=== PATIENT | male | born 1935 | race Caucasian/White ===

== ENCOUNTER 2019-10-05 19:57 | Inpatient (IN) | payer BC, MEDICARE ==
[~2019-10-05] VITALS: Ht 190.5 cm; Wt 103.0 kg
[2019-10-05] MEDS ORDERED: PACERONE200 MG PO (20:26)
[2019-10-05] MEDS ORDERED: NORVASC10 MG PO (20:26)
[2019-10-05] MEDS ORDERED: LIPITOR10 MG PO (20:26)
[2019-10-05] MEDS ORDERED: VITAMIN D350 MC3 PO (20:27)
[2019-10-05] MEDS ORDERED: METOPROLOL SUCC25 MG PO (20:27)
[2019-10-05] MEDS ORDERED: ZOLOFT50 MG PO (20:27)
[2019-10-05] MEDS ORDERED: ELIQUIS2.5 MG PO (20:28)
[2019-10-05] MEDS ORDERED: OMEPRAZOLE20 MG PO (20:28)
--- NOTE | 2019-10-05 22:38 | EKG ---
[facility] [address] [place] [address] Signed Atrial fibrillation Low voltage QRS Nonspecific ST and T wave abnormality Prolonged QT Abnormal ECG No previous ECGs available Confirmed by DARREL LEONARD MD ([id number]) on 10/05/2019 10:38:09 PM Electronically Signed By: DARREL LEONARD MD 10/05/19 [id number] PATIENT NAME: PARIS HILL Electrocardiogram DATE OF : 39 PHYSICIAN: DARREL LEONARD MD REPORT #: [id number] REPORT IS CONFIDENTIAL AND NOT TO BE RELEASED WITHOUT AUTHORIZATION
[2019-10-07] MEDS ORDERED: ALEVE220 MG PO (13:43)
[2019-10-10] MEDS ORDERED: CEFPODOXIME PR200 MG PO (13:11)
[2019-10-10] MEDS ORDERED: SODIUM BICARBO650 MG PO (13:12)
== END 2019-10-10 15:35 | disposition home or self-care (01) | DRG 193 ==
LOC: ED 19:57 → CCU 10-06 00:26 → MS 10-07 12:00
PROVIDERS: ADMIT Internal Medicine
DX: J13 Pneumonia due to Streptococcus pneumoniae (principal); J96.01 Acute respiratory failure with hypoxia; N18.4 Chronic kidney disease, stage 4 (severe); E11.22 Type 2 diabetes mellitus with diabetic chronic kidney disease; I12.9 Hypertensive chronic kidney disease with stage 1 through stage 4 chronic kidney disease, or unspecified chronic kidney disease; K21.9 Gastro-esophageal reflux disease without esophagitis; E78.5 Hyperlipidemia, unspecified; F32.9 Major depressive disorder, single episode, unspecified; R41.81 Age-related cognitive decline; I48.0 Paroxysmal atrial fibrillation; I25.2 Old myocardial infarction; I25.10 Atherosclerotic heart disease of native coronary artery without angina pectoris; Z95.1 Presence of aortocoronary bypass graft; Z66 Do not resuscitate; Z86.718 Personal history of other venous thrombosis and embolism; Z79.01 Long term (current) use of anticoagulants; Z79.1 Long term (current) use of non-steroidal anti-inflammatories (NSAID); Z79.899 Other long term (current) drug therapy
CPT/HCPCS: 36415; 36600; 51702; 71045; 71046; 80048; 80053; 81001; 82803; 83036; 83605; 83735; 85025; 87070; 87077; 87088; 87181; 87186; 87205; 87502; 93005; 93010; 93306; 94640; 94660; 94667; 94668; 94761; 97110; 97116; 97162; 97165; 97530; 99285-25; J0456; J0696; J3475; J7030; J7060; J7121

== ENCOUNTER 2019-12-31 22:33 | Emergency (ER) | payer BC ==
[~2019-12-31] VITALS: Ht 190.5 cm; Wt 99.8 kg
--- OUTSIDE RECORDS SUMMARY | ~2019-12-31 | XMS | Encounter Summary ---
Demographics + + + | Address | [address] | | | [place] [address] | + + + | Home Phone | | + + + | Preferred Language | Unknown | + + + | Marital Status | | + + + | Lutheran Affiliation | Unknown | + + + | Race | Unknown | + + + | Ethnic Group | Unknown | + + + Author + + + | Author | [facility] | | | and [place] | + + + | Organization | [facility] | | | and [place] | + + + | Address | Unknown | + + + | Phone | Unavailable | + + + Support + + + + + | Name | Relationship | Address | Phone | + + + + + | Enma Blum | ECON | [address] | | | | | [address] | | | | | [address] | | + + + + + Care Team Providers + +------+ + | Care Event Security Officer Name | Role | Phone | + +------+ + | Yasmani Phelan PCP | | + +------+ + Encounter Details +--------+ + + + + | Date | Type | Department | Care Team | Description | +--------+ + + + + | 11/10/ | Abstract | [facility] | [place], | | | 2020 | | NEPHROLOGY [address] | Shannan R, TRIMMING ASSEMBLER [address] | | | | | [address] [place] [address] | [address], [place] | | | | | [place], [place] | [address] [place], [place] | | | | | [phone] | [address] | | | | | [phone] | | | +--------+ + + + + Social History + + + +--------+ + | Tobacco Use | Types | Packs/Day | Years | Date | | | | | Used | | + + + +--------+ + | Former Smoker | Cigarettes | | | Quit: 07/28/1981 | + + + +--------+ + + +---+---+---+ | Smokeless Tobacco: | | | | | Never Used | | | | + +---+---+---+ + + +---------+ + | Alcohol Use | Drinks/Week | oz/Week | Comments | + + +---------+ + | Yes | | | seldom | + + +---------+ + + + + | Sex Assigned at | Date Recorded | | | | + + + | Not on file | | + + + + + + + | Job Start Date | Occupation | Industry | + + + + | Not on file | Not on file | Not on file | + + + + + + + + | Travel History | Travel Start | Travel End | + + + + + + | No recent travel history available. | + + documented as of this encounter Plan of Treatment +--------+---------+ + + + | Date | Type | Specialty | Care Team | Description | +--------+---------+ + + + | 01/26/ | Office | Nephrology | [place], | | | 2020 | Visit | | [address] | | | | | | [address], [place] | | | | | | [address] [place] | | | | | | [address] | | | | | | | | +--------+---------+ + + + | 02/23/ | Office | Cardiology | Rasheed Dooley, | | | 2019 | Visit | | MD [address] | | | | | | [place], | | | | | | [place] [address] | | | | | | [phone] | | | | | | | | +--------+---------+ + + + documented as of this encounter Procedures + +--------+ + + + | Procedure Name | Priori | Date/Time | Associated Diagnosis | Comments | | | ty | | | | + +--------+ + + + | EXTERNAL LAB: JESUS | Routin | 10/20/2019 | | Results for this | | | e | | | procedure are in the | | | | | | results section. | + +--------+ + + + | EXTERNAL LAB: | Routin | 10/20/2019 | | Results for this | | GLUCOSE | e | | | procedure are in the | | | | | | results section. | + +--------+ + + + | EXTERNAL LAB: ALT | Routin | 10/20/2019 | | Results for this | | | e | | | procedure are in the | | | | | | results section. | + +--------+ + + + | EXTERNAL LAB: AST | Routin | 10/20/2019 | | Results for this | | | e | | | procedure are in the | | | | | | results section. | + +--------+ + + + | EXTERNAL LAB: | Routin | 10/20/2019 | | Results for this | | ALKALINE PHOSPHATASE | e | | | procedure are in the | | | | | | results section. | + +--------+ + + + | EXTERNAL LAB: | Routin | 10/20/2019 | | Results for this | | BILIRUBIN, TOTAL | e | | | procedure are in the | | | | | | results section. | + +--------+ + + + | EXTERNAL LAB: | Routin | 10/20/2019 | | Results for this | | ALBUMIN | e | | | procedure are in the | | | | | | results section. | + +--------+ + + + | EXTERNAL LAB: | Routin | 10/20/2019 | | Results for this | | PROTEIN, TOTAL | e | | | procedure are in the | | | | | | results section. | + +--------+ + + + | EXTERNAL LAB: | Routin | 10/20/2019 | | Results for this | | CALCIUM | e | | | procedure are in the | | | | | | results section. | + +--------+ + + + | EXTERNAL LAB: CARBON | Routin | 10/20/2019 | | Results for this | | DIOXIDE | e | | | procedure are in the | | | | | | results section. | + +--------+ + + + | EXTERNAL LAB: | Routin | 10/20/2019 | | Results for this | | CHLORIDE | e | | | procedure are in the | | | | | | results section. | + +--------+ + + + | EXTERNAL LAB: | Routin | 10/20/2019 | | Results for this | | POTASSIUM | e | | | procedure are in the | | | | | | results section. | + +--------+ + + + | EXTERNAL LAB: SODIUM | Routin | 10/20/2019 | | Results for this | | | e | | | procedure are in the | | | | | | results section. | + +--------+ + + + | EXTERNAL LAB: CBC | Routin | 10/20/2019 | | Results for this | | | e | | | procedure are in the | | | | | | results section. | + +--------+ + + + | EXTERNAL LAB: EGFR | Routin | 10/20/2019 | | Results for this | | | e | | | procedure are in the | | | | | | results section. | + +--------+ + + + | EXTERNAL LAB: | Routin | 10/20/2019 | | Results for this | | CREATININE | e | | | procedure are in the | | | | | | results section. | + +--------+ + + + | EXTERNAL LAB: BUN | Routin | 10/08/2019 | | Results for this | | | e | | | procedure are in the | | | | | | results section. | + +--------+ + + + | EXTERNAL LAB: | Routin | 10/08/2019 | | Results for this | | GLUCOSE | e | | | procedure are in the | | | | | | results section. | + +--------+ + + + | EXTERNAL LAB: | Routin | 10/08/2019 | | Results for this | | CALCIUM | e | | | procedure are in the | | | | | | results section. | + +--------+ + + + | EXTERNAL LAB: CARBON | Routin | 10/08/2019 | | Results for this | | DIOXIDE | e | | | procedure are in the | | | | | | results section. | + +--------+ + + + | EXTERNAL LAB: | Routin | 10/08/2019 | | Results for this | | CHLORIDE | e | | | procedure are in the | | | | | | results section. | + +--------+ + + + | EXTERNAL LAB: | Routin | 10/08/2019 | | Results for this | | POTASSIUM | e | | | procedure are in the | | | | | | results section. | + +--------+ + + + | EXTERNAL LAB: SODIUM | Routin | 10/08/2019 | | Results for this | | | e | | | procedure are in the | | | | | | results section. | + +--------+ + + + | EXTERNAL LAB: EGFR | Routin | 10/08/2019 | | Results for this | | | e | | | procedure are in the | | | | | | results section. | + +--------+ + + + | EXTERNAL LAB: | Routin | 10/08/2019 | | Results for this | | CREATININE | e | | | procedure are in the | | | | | | results section. | + +--------+ + + + | EXTERNAL LAB: BUN | Routin | 10/05/2019 | | Results for this | | | e | | | procedure are in the | | | | | | results section. | + +--------+ + + + | EXTERNAL LAB: | Routin | 10/05/2019 | | Results for this | | GLUCOSE | e | | | procedure are in the | | | | | | results section. | + +--------+ + + + | EXTERNAL LAB: ALT | Routin | 10/05/2019 | | Results for this | | | e | | | procedure are in the | | | | | | results section. | + +--------+ + + + | EXTERNAL LAB: AST | Routin | 10/05/2019 | | Results for this | | | e | | | procedure are in the | | | | | | results section. | + +--------+ + + + | EXTERNAL LAB: | Routin | 10/05/2019 | | Results for this | | ALKALINE PHOSPHATASE | e | | | procedure are in the | | | | | | results section. | + +--------+ + + + | EXTERNAL LAB: | Routin | 10/05/2019 | | Results for this | | BILIRUBIN, TOTAL | e | | | procedure are in the | | | | | | results section. | + +--------+ + + + | EXTERNAL LAB: | Routin | 10/05/2019 | | Results for this | | ALBUMIN | e | | | procedure are in the | | | | | | results section. | + +--------+ + + + | EXTERNAL LAB: | Routin | 10/05/2019 | | Results for this | | PROTEIN, TOTAL | e | | | procedure are in the | | | | | | results section. | + +--------+ + + + | EXTERNAL LAB: | Routin | 10/05/2019 | | Results for this | | CALCIUM | e | | | procedure are in the | | | | | | results section. | + +--------+ + + + | EXTERNAL LAB: CARBON | Routin | 10/05/2019 | | Results for this | | DIOXIDE | e | | | procedure are in the | | | | | | results section. | + +--------+ + + + | EXTERNAL LAB: | Routin | 10/05/2019 | | Results for this | | CHLORIDE | e | | | procedure are in the | | | | | | results section. | + +--------+ + + + | EXTERNAL LAB: | Routin | 10/05/2019 | | Results for this | | POTASSIUM | e | | | procedure are in the | | | | | | results section. | + +--------+ + + + | EXTERNAL LAB: SODIUM | Routin | 10/05/2019 | | Results for this | | | e | | | procedure are in the | | | | | | results section. | + +--------+ + + + | EXTERNAL LAB: CBC | Routin | 10/05/2019 | | Results for this | | | e | | | procedure are in the | | | | | | results section. | + +--------+ + + + | EXTERNAL LAB: ESTEBAN | Routin | 10/05/2019 | | Results for this | | | e | | | procedure are in the | | | | | | results section. | + +--------+ + + + | EXTERNAL LAB: | Routin | 10/05/2019 | | Results for this | | CREATININE | e | | | procedure are in the | | | | | | results section. | + +--------+ + + + documented in this encounter Results External Lab: BUN (10/20/2019) + +-------+ + + + | Component | Value | Ref Range | Performed | Pathologist | | | | | At | Signature | + +-------+ + + + | BUN, | 32 | | | | | External | | | | | + +-------+ + + + External Lab: Glucose (10/20/2019) + +-------+ + + + | Component | Value | Ref Range | Performed | Pathologist | | | | | At | Signature | + +-------+ + + + | Glucose, | 143 | | | | | External | | | | | + +-------+ + + + External Lab: ALT (10/20/2019) + +-------+ + + + | Component | Value | Ref Range | Performed | Pathologist | | | | | At | Signature | + +-------+ + + + | ALT, | 33 | | | | | External | | | | | + +-------+ + + + External Lab: AST (10/20/2019) + +-------+ + + + | Component | Value | Ref Range | Performed | Pathologist | | | | | At | Signature | + +-------+ + + + | AST, | 28 | | | | | External | | | | | + +-------+ + + + External Lab: Alkaline Phosphatase (10/20/2019) + +-------+ + + + | Component | Value | Ref Range | Performed | Pathologist | | | | | At | Signature | + +-------+ + + + | ALP, | 66 | | | | | External | | | | | + +-------+ + + + External Lab: Bilirubin, Total (10/20/2019) + +-------+ + + + | Component | Value | Ref Range | Performed | Pathologist | | | | | At | Signature | + +-------+ + + + | Bilirubin, | 0.4 | | | | | Total, | | | | | | External | | | | | + +-------+ + + + External Lab: Albumin (10/20/2019) + +-------+ + + + | Component | Value | Ref Range | Performed | Pathologist | | | | | At | Signature | + +-------+ + + + | Albumin, | 3.2 | | | | | External | | | | | + +-------+ + + + External Lab: Protein, Total (10/20/2019) + +-------+ + + + | Component | Value | Ref Range | Performed | Pathologist | | | | | At | Signature | + +-------+ + + + | Protein, | 5.9 | | | | | Total, | | | | | | External | | | | | + +-------+ + + + External Lab: Calcium (10/20/2019) + +-------+ + + + | Component | Value | Ref Range | Performed | Pathologist | | | | | At | Signature | + +-------+ + + + | Calcium, | 8.4 | | | | | External | | | | | + +-------+ + + + External Lab: Carbon Dioxide (10/20/2019) + +-------+ + + + | Component | Value | Ref Range | Performed | Pathologist | | | | | At | Signature | + +-------+ + + + | Carbon | 26 | | | | | Dioxide, | | | | | | External | | | | | + +-------+ + + + External Lab: Chloride (10/20/2019) + +-------+ + + + | Component | Value | Ref Range | Performed | Pathologist | | | | | At | Signature | + +-------+ + + + | Chloride, | 104 | | | | | External | | | | | + +-------+ + + + External Lab: Potassium (10/20/2019) + +-------+ + + + | Component | Value | Ref Range | Performed | Pathologist | | | | | At | Signature | + +-------+ + + + | Potassium, | 4.3 | | | | | External | | | | | + +-------+ + + + External Lab: Sodium (10/20/2019) + +-------+ + + + | Component | Value | Ref Range | Performed | Pathologist | | | | | At | Signature | + +-------+ + + + | Sodium, | 138 | | | | | External | | | | | + +-------+ + + + External Lab: CBC (10/20/2019) + +-------+ + + + | Component | Value | Ref Range | Performed | Pathologist | | | | | At | Signature | + +-------+ + + + | WBC, | 9.8 | | | | | External | | | | | + +-------+ + + + | HGB, | 10.3 | | | | | External | | | | | + +-------+ + + + | HCT, | 31.6 | | | | | External | | | | | + +-------+ + + + | PLT, | 276 | | | | | External | | | | | + +-------+ + + + | RBC, | 3.39 | | | | | External | | | | | + +-------+ + + + | MCV, | 93 | | | | | External | | | | | + +-------+ + + + | RDW, | 17.1 | | | | | External | | | | | + +-------+ + + + External Lab: eGFR (10/20/2019) + +-------+ + + + | Component | Value | Ref Range | Performed | Pathologist | | | | | At | Signature | + +-------+ + + + | eGFR, | 20 | | | | | External | | | | | + +-------+ + + + + + | Specimen | + + | Blood | + + External Lab: Creatinine (10/20/2019) + +-------+ + + + | Component | Value | Ref Range | Performed | Pathologist | | | | | At | Signature | + +-------+ + + + | Creatinine, | 2.96 | | | | | External | | | | | + +-------+ + + + + + | Specimen | + + | Blood | + + External Lab: BUN (10/08/2019) + +-------+ + + + | Component | Value | Ref Range | Performed | Pathologist | | | | | At | Signature | + +-------+ + + + | BUN, | 51 | | | | | External | | | | | + +-------+ + + + External Lab: Glucose (10/08/2019) + +-------+ + + + | Component | Value | Ref Range | Performed | Pathologist | | | | | At | Signature | + +-------+ + + + | Glucose, | 122 | | | | | External | | | | | + +-------+ + + + External Lab: Calcium (10/08/2019) + +-------+ + + + | Component | Value | Ref Range | Performed | Pathologist | | | | | At | Signature | + +-------+ + + + | Calcium, | 8.8 | | | | | External | | | | | + +-------+ + + + External Lab: Carbon Dioxide (10/08/2019) + +-------+ + + + | Component | Value | Ref Range | Performed | Pathologist | | | | | At | Signature | + +-------+ + + + | Carbon | 21 | | | | | Dioxide, | | | | | | External | | | | | + +-------+ + + + External Lab: Chloride (10/08/2019) + +-------+ + + + | Component | Value | Ref Range | Performed | Pathologist | | | | | At | Signature | + +-------+ + + + | Chloride, | 108 | | | | | External | | | | | + +-------+ + + + External Lab: Potassium (10/08/2019) + +-------+ + + + | Component | Value | Ref Range | Performed | Pathologist | | | | | At | Signature | + +-------+ + + + | Potassium, | 4.1 | | | | | External | | | | | + +-------+ + + + External Lab: Sodium (10/08/2019) + +-------+ + + + | Component | Value | Ref Range | Performed | Pathologist | | | | | At | Signature | + +-------+ + + + | Sodium, | 139 | | | | | External | | | | | + +-------+ + + + External Lab: eGFR (10/08/2019) + +-------+ + + + | Component | Value | Ref Range | Performed | Pathologist | | | | | At | Signature | + +-------+ + + + | eGFR, | 19 | | | | | External | | | | | + +-------+ + + + + + | Specimen | + + | Blood | + + External Lab: Creatinine (10/08/2019) + +-------+ + + + | Component | Value | Ref Range | Performed | Pathologist | | | | | At | Signature | + +-------+ + + + | Creatinine, | 3.2 | | | | | External | | | | | + +-------+ + + + + + | Specimen | + + | Blood | + + External Lab: BUN (10/05/2019) + +-------+ + + + | Component | Value | Ref Range | Performed | Pathologist | | | | | At | Signature | + +-------+ + + + | BUN, | 47 | | | | | External | | | | | + +-------+ + + + External Lab: Glucose (10/05/2019) + +-------+ + + + | Component | Value | Ref Range | Performed | Pathologist | | | | | At | Signature | + +-------+ + + + | Glucose, | 154 | | | | | External | | | | | + +-------+ + + + External Lab: ALT (10/05/2019) + +-------+ + + + | Component | Value | Ref Range | Performed | Pathologist | | | | | At | Signature | + +-------+ + + + | ALT, | 23 | | | | | External | | | | | + +-------+ + + + External Lab: AST (10/05/2019) + +-------+ + + + | Component | Value | Ref Range | Performed | Pathologist | | | | | At | Signature | + +-------+ + + + | AST, | 18 | | | | | External | | | | | + +-------+ + + + External Lab: Alkaline Phosphatase (10/05/2019) + +-------+ + + + | Component | Value | Ref Range | Performed | Pathologist | | | | | At | Signature | + +-------+ + + + | ALP, | 60 | | | | | External | | | | | + +-------+ + + + External Lab: Bilirubin, Total (10/05/2019) + +-------+ + + + | Component | Value | Ref Range | Performed | Pathologist | | | | | At | Signature | + +-------+ + + + | Bilirubin, | 0.6 | | | | | Total, | | | | | | External | | | | | + +-------+ + + + External Lab: Albumin (10/05/2019) + +-------+ + + + | Component | Value | Ref Range | Performed | Pathologist | | | | | At | Signature | + +-------+ + + + | Albumin, | 3.7 | | | | | External | | | | | + +-------+ + + + External Lab: Protein, Total (10/05/2019) + +-------+ + + + | Component | Value | Ref Range | Performed | Pathologist | | | | | At | Signature | + +-------+ + + + | Protein, | 6.4 | | | | | Total, | | | | | | External | | | | | + +-------+ + + + External Lab: Calcium (10/05/2019) + +-------+ + + + | Component | Value | Ref Range | Performed | Pathologist | | | | | At | Signature | + +-------+ + + + | Calcium, | 8.7 | | | | | External | | | | | + +-------+ + + + External Lab: Carbon Dioxide (10/05/2019) + +-------+ + + + | Component | Value | Ref Range | Performed | Pathologist | | | | | At | Signature | + +-------+ + + + | Carbon | 19 | | | | | Dioxide, | | | | | | External | | | | | + +-------+ + + + External Lab: Chloride (10/05/2019) + +-------+ + + + | Component | Value | Ref Range | Performed | Pathologist | | | | | At | Signature | + +-------+ + + + | Chloride, | 108 | | | | | External | | | | | + +-------+ + + + External Lab: Potassium (10/05/2019) + +-------+ + + + | Component | Value | Ref Range | Performed | Pathologist | | | | | At | Signature | + +-------+ + + + | Potassium, | 4.5 | | | | | External | | | | | + +-------+ + + + External Lab: Sodium (10/05/2019) + +-------+ + + + | Component | Value | Ref Range | Performed | Pathologist | | | | | At | Signature | + +-------+ + + + | Sodium, | 136 | | | | | External | | | | | + +-------+ + + + External Lab: CBC (10/05/2019) + +-------+ + + + | Component | Value | Ref Range | Performed | Pathologist | | | | | At | Signature | + +-------+ + + + | WBC, | 20.9 | | | | | External | | | | | + +-------+ + + + | HGB, | 10.7 | | | | | External | | | | | + +-------+ + + + | HCT, | 33 | | | | | External | | | | | + +-------+ + + + | PLT, | 182 | | | | | External | | | | | + +-------+ + + + | RBC, | 3.57 | | | | | External | | | | | + +-------+ + + + | MCV, | 92 | | | | | External | | | | | + +-------+ + + + | RDW, | 17.3 | | | | | External | | | | | + +-------+ + + + External Lab: eGFR (10/05/2019) + +-------+ + + + | Component | Value | Ref Range | Performed | Pathologist | | | | | At | Signature | + +-------+ + + + | eGFR, | 17 | | | | | External | | | | | + +-------+ + + + + + | Specimen | + + | Blood | + + External Lab: Creatinine (10/05/2019) + +-------+ + + + | Component | Value | Ref Range | Performed | Pathologist | | | | | At | Signature | + +-------+ + + + | Creatinine, | 3.43 | | | | | External | | | | | + +-------+ + + + + + | Specimen | + + | Blood | + + documented in this encounter Visit Diagnoses Not on filedocumented in this encounter"
--- OUTSIDE RECORDS SUMMARY | ~2019-12-31 | XMS | Encounter Summary ---
Demographics + + + | Address | [address] | | | [place] [address] | + + + | Home Phone | | + + + | Preferred Language | Unknown | + + + | Marital Status | | + + + | Restorationist Affiliation | Unknown | + + + | Race | Unknown | + + + | Ethnic Group | Unknown | + + + Author + + + | Author | [facility] | | | and [place] | + + + | Organization | [facility] | | | and [place] | + + + | Address | Unknown | + + + | Phone | Unavailable | + + + Support + + + + + | Name | Relationship | Address | Phone | + + + + + | Enma Blum | ECON | [address] | | | | | [place] | | | | | [address] | | + + + + + Care Team Providers + +------+ + | Care Pmp Project Manager Name | Role | Phone | + +------+ + PCP | Unavailable | + +------+ + Reason for Visit +--------+ + | Reason | Comments | +--------+ + | Fall | hit head, multiple contusions, | +--------+ + Encounter Details +--------+ + + + + | Date | Type | Department | Care Team | Description | +--------+ + + + + | 05/03/ | Emergency | [facility] | EmmieIsidro nova | Fall, initial | | 2019 | | [facility] | [address] | encounter (Primary | | | | CENTER [address] | [address] [place] | Dx); Multiple skin | | | | [place], [place] | [place] [address] | tears; Closed head | | | | [address] | [phone] | injury, initial | | | | [phone] | | encounter | +--------+ + + + + Social [...] + + documented as of this encounter Last Filed Vital Signs + + + + + | Vital Sign | Reading | Time Taken | Comments | + + + + + | Blood Pressure | 143/62 | 05/03/2019 3:00 PM | | | | | PDT | | + + + + + | Pulse | 58 | 05/03/2019 3:00 PM | | | | | PDT | | + + + + + | Temperature | 36.6 C (97.8 F) | 05/03/2019 3:18 PM | | | | | PDT | | + + + + + | Respiratory Rate | 21 | 05/03/2019 3:00 PM | | | | | PDT | | + + + + + | Oxygen Saturation | 93% | 05/03/2019 3:00 PM | | | | | PDT | | + + + + + | Inhaled Oxygen | - | - | | | Concentration | | | | + + + + + | Weight | - | - | | + + + + + | Height | - | - | | + + + + + | Body Mass Index | - | - | | + + + + + documented in this encounter Discharge Instructions AttachmentsThe following attachments cannot be sent through Care Everywhere.Falls, Preventi ng, Are You At Risk of Falling? (Ivorian)Head Injury (Adult) (Ivorian)Skin Avulsion (Ivorian )documented in this encounter Medications at Time of Discharge + + + +---------+--------+ + | Medication | Sig | Dispensed | Refills | Start | End Date | | | | | | Date | | + + + +---------+--------+ + | amiodarone | Take 200 mg by mouth | | 0 | | | | (PACERONE) 200 mg | Daily. | | | | | | tablet | | | | | | + + + +---------+--------+ + | amLODIPine | Take 2.5 mg by mouth | | 0 | | | | (NORVASC) 2.5 mg | Daily. | | | | | | tablet | | | | | | + + + +---------+--------+ + | apixaban (ELIQUIS) | Take 2.5 mg by mouth | | 0 | | | | 2.5 mg tablet | 2 times daily. | | | | | + + + +---------+--------+ + | atorvaSTATin | Take 10 mg by mouth | | 0 | | | | (LIPITOR) 10 mg | nightly. | | | | | | tablet | | | | | | + + + +---------+--------+ + | carbamide peroxide | 5 drops 2 times | | 0 | | | | (DEBROX) 6.5% otic | daily. | | | | | | solution | | | | | | + + + +---------+--------+ + | cholecalciferol | Take 1,000 Units by | | 0 | | | | (VITAMIN D-3) 1000 | mouth Daily. | | | | | | units TABS | | | | | | + + + +---------+--------+ + | metoprolol | Take 25 mg by mouth | | 0 | | | | succinate | Daily. | | | | | | (TOPROL-XL) 25 mg 24 | | | | | | | hr tablet | | | | | | + + + +---------+--------+ + | omeprazole | Take 20 mg by mouth | | 0 | | | | (PRILOSEC) 20 mg | every morning | | | | | | capsule | (before breakfast). | | | | | + + + +---------+--------+ + | sertraline | Take 50 mg by mouth | | 0 | | | | (ZOLOFT) 50 mg | Daily. | | | | | | tablet | | | | | | + + + +---------+--------+ + documented as of this encounter Plan [...] | | | | | | [address], [place] | | | | | | [address] | | | | | | | | +--------+---------+ + + + | 02/23/ | Office | Cardiology | Rasheed Dooley, | | | 2019 | Visit | | [address] | | | | | | [place], | | | | | | [place] [address] | | | | | | [phone] | | | | | | | | +--------+---------+ + + + documented as of this encounter Procedures + +--------+ + + + | Procedure Name | Priori | Date/Time | Associated Diagnosis | Comments | | | ty | | | | + +--------+ + + + | ECG 12 LEAD | STAT | 05/03/2019 | | Results for this | | | | 3:51 PM | | procedure are in the | | | | PDT | | results section. | + +--------+ + + + | CT HEAD WO CONTRAST | STAT | 05/03/2019 | | Results for this | | | | 3:31 PM | | procedure are in the | | | | PDT | | results section. | + +--------+ + + + | XR HAND RIGHT 3 + VW | STAT | 05/03/2019 | | Results for this | | | | 3:27 PM | | procedure are in the | | | | PDT | | results section. | + +--------+ + + + documented in this encounter Results ECG 12 lead (05/03/2019 3:51 PM PDT) + + + + + + | Component | Value | Ref Range | Performed | Pathologist | | | | | At | Signature | + + + + + + | VENTRICULAR | 56 | BPM | [facility] | | | RATE EKG | | | | | + + + + + + | ATRIAL RATE | 200 | BPM | [facility] | | + + + + + + | QRS | 100 | ms | [facility] | | | DURATION | | | | | + + + + + + | Q-T | 492 | ms | [facility] | | | INTERVAL | | | | | + + + + + + | Q-T | 474 | ms | [facility] | | | INTERVAL | | | | | | (CORRECTED) | | | | | + + + + + + | QRS AXIS | 26 | degrees | [facility] | | + + + + + + | T AXIS | 84 | degrees | [facility] | | + + + + + + | INTERPRETAT | Poor data quality, | | [facility] | | | ION TEXT | interpretation may be | | | | | | adversely affectedAtrial | | | | | | tacycardia versus | | | | | | atrial flutter with | | | | | | variable blodkLeads V5-6 | | | | | | cannot be | | | | | | intepretedNonspecific ST | | | | | | and T wave | | | | | | abnormalityLong | | | | | | QTcAbnormal ECGNo | | | | | | previous ECGs | | | | | | availableRecommend | | | | | | cardiology | | | | | | consultationConfirmed by | | | | | | VINNY PATEL MD ([id number]) | | | | | | on 05/04/2019 6:01:17 AM | | | | | | | | | | + + + + + + + + | Specimen | + + | | + + + + + | Narrative | Performed At | + + + | | | + + + + +---------+ + + | Performing | Address | City/State/Zipcode | Phone Number | | Organization | | | | + +---------+ + + | [facility] | | | | + +---------+ + + CT Head wo Contrast (05/03/2019 3:31 PM PDT) + + | Specimen | + + | | + + + + + | Narrative | Performed At | + + + | EXAM: CT HEAD WO CONTRAST dated 05/03/2019 3:27 PM HISTORY: | [facility] | | Head trauma, minor (Age > 65y) Comparison: None. TECHNIQUE: | | | Noncontrast CT is performed from the top of calvarium through the | | | skull base. Coronal and sagittal reformats are performed. | | | FINDINGS: BRAIN: Artifact likely accounts for the small amount | | | of hypodensity within the gibran. Remote bilateral basal ganglia | | | lacunar infarct which are most prominent on the left. Subtle | | | ill-defined hypodensity in the left rodriguez radiata periventricular | | | white matter is suggestive of an age-indeterminate infarct. No areas | | | of increased attenuation to suggest intracranial hemorrhage. There | | | is no mass, mass effect, or midline shift. There are no abnormal | | | extra-axial fluid or air collections. There is preservation of the | | | powell-white differentiation at this time. There is moderate | | | cerebral atrophy. There is associated appropriate prominence of the | | | ventricles. There is moderate patchy to confluent decreased | | | density in the periventricular and subcortical white matter. Moderate | | | to severe intracranial arteriosclerosis. SCALP/ CALVARIUM: Small | | | right frontal scalp soft tissue laceration/contusion. No evidence for | | | an underlying skull fracture. SINUSES / ORBITS/ MASTOIDS: The | | | visible mastoid air cells and paranasal sinuses are clear. The | | | globes and retroconal contents are intact and without evidence of | | | acute abnormality. IMPRESSION - 1. No acute intracranial | | | abnormality identified. 2. Tiny right frontal scalp soft tissue | | | contusion without evidence for underlying skull fracture. 3. A few | | | areas of patchy hypodensity in the centrum semiovale and rodriguez | | | radiata white matter likely represents chronic vascular ischemic | | | changes or renal infarcts. Age indeterminate infarct cannot be | | | entirely excluded. If patient has acute infarct symptoms, MRI may be | | | obtained; otherwise, no further imaging is needed. 4. Moderate | | | cerebral atrophy. Dictated and Signed by: Antwon Retana MD | | | Electronically signed: 05/03/2019 3:37 PM | | + + + + + | Procedure Note | + + | Tyree, Rad Results In - 05/03/2019 3:41 PM PDT EXAM: CT HEAD WO CONTRAST dated | | 05/03/2019 3:27 PMHISTORY: Head trauma, minor (Age > 65y)Comparison: None.TECHNIQUE: | | Noncontrast CT is performed from the top of calvarium through theskull base. Coronal | | and sagittal reformats are performed.FINDINGS: BRAIN: Artifact likely accounts for the | | small amount of hypodensity within thepons. Remote bilateral basal ganglia lacunar | | infarct which are most prominent onthe left. Subtle ill-defined hypodensity in the left | | rodriguez radiataperiventricular white matter is suggestive of an age-indeterminate | | infarct. Noareas of increased attenuation to suggest intracranial hemorrhage. There is | | nomass, mass effect, or midline shift. There are no abnormal extra-axial fluid orair | | collections. There is preservation of the powell-white differentiation atthis time. | | There is moderate cerebral atrophy. There is associatedappropriate prominence of the | | ventricles. There is moderate patchy to confluentdecreased density in the | | periventricular and subcortical white matter. Moderateto severe intracranial | | arteriosclerosis.SCALP/ CALVARIUM: Small right frontal scalp soft tissue | | laceration/contusion. Noevidence for an underlying skull fracture.SINUSES / ORBITS/ | | MASTOIDS: The visible mastoid air cells and paranasal sinusesare clear. The globes and | | retroconal contents are intact and without evidenceof acute abnormality.IMPRESSION -1. | | No acute intracranial abnormality identified.2. Tiny right frontal scalp soft tissue | | contusion without evidence forunderlying skull fracture.3. A few areas of patchy | | hypodensity in the centrum semiovale and rodriguez radiatawhite matter likely represents | | chronic vascular ischemic changes or renalinfarcts. Age indeterminate infarct cannot be | | entirely excluded. If patient hasacute infarct symptoms, MRI may be obtained; otherwise, | | no further imaging isneeded.4. Moderate cerebral atrophy.Dictated and Signed by: Antwon | | MD Mazin Electronically signed: 05/03/2019 3:37 PM | |evidence for an underlying skull fracture. | | | |SINUSES / ORBITS/ MASTOIDS: The visible mastoid air cells and paranasal sinuses | |are clear. The globes and retroconal contents are intact and without evidence | |of acute abnormality. | | | |IMPRESSION - | |1. No acute intracranial abnormality identified. | |2. Tiny right frontal scalp soft tissue contusion without evidence for | |underlying skull fracture. | |3. A few areas of patchy hypodensity in the centrum semiovale and rodriguez radiata | |white matter likely represents chronic vascular ischemic changes or renal | |infarcts. Age indeterminate infarct cannot be entirely excluded. If patient has | |acute infarct symptoms, MRI may be obtained; otherwise, no further imaging is | |needed. | |4. Moderate cerebral atrophy. | | | | | | | |Dictated and Signed by: Antwon Retana MD | | Electronically signed: 05/03/2019 3:37 PM | + + + +---------+ + + | Performing | Address | City/State/Zipcode | Phone Number | | Organization | | | | + +---------+ + + | [facility] | | | | + +---------+ + + XR Hand Right 3 + Vw (05/03/2019 3:27 PM PDT) + + | Specimen | + + | | + + + + + | Narrative | Performed At | + + + | XR HAND RIGHT 3 + VW 05/03/2019 3:27 PM HISTORY: FALL. | [facility] | | COMPARISON: None. FINDINGS: Mild/moderate first CMC joint | | | degenerative changes. Otherwise, mild scattered interphalangeal joint | | | degenerative changes. No compelling evidence for an acute fracture | | | or acute traumatic malalignment. Mild soft tissue swelling along the | | | dorsal aspect of the distal fifth metatarsal head with subtle cortical | | | irregularity but no convincing evidence for fracture at this time. | | | IMPRESSION - Mild soft tissue swelling along the dorsal aspect of | | | the distal fifth metatarsal head with subtle cortical irregularity, | | | but no convincing evidence for fracture at this time. -If there is | | | continued pain, repeat imaging in 10-14 days may be considered. | | | Dictated and Signed by: Antwon Retana MD Electronically signed: | | | 05/03/2019 4:09 PM | | + + + + + | Procedure Note | + + | Tyree, Rad Results In - 05/03/2019 4:12 PM PDT XR HAND RIGHT 3 + VW 05/03/2019 3:27 PM | | | | HISTORY: FALL. | | | | COMPARISON: None. | | | | FINDINGS: | | Mild/moderate first CMC joint degenerative changes. Otherwise, mild scattered | | interphalangeal joint degenerative changes. No compelling evidence for an acute | | fracture or acute traumatic malalignment. Mild soft tissue swelling along the | | dorsal aspect of the distal fifth metatarsal head with subtle cortical | | irregularity but no convincing evidence for fracture at this time. | | | | IMPRESSION - | | Mild soft tissue swelling along the dorsal aspect of the distal fifth metatarsal | | head with subtle cortical irregularity, but no convincing evidence for fracture | | at this time. | | -If there is continued pain, repeat imaging in 10-14 days may be considered. | | | | Dictated and Signed by: Antwon Retana MD | | Electronically signed: 05/03/2019 4:09 PM | + + + +---------+ + + | Performing | Address | City/State/Zipcode | Phone Number | | Organization | | | | + +---------+ + + | [facility] | | | | + +---------+ + + documented in this encounter Visit Diagnoses + + | Diagnosis | + + | Fall, initial encounter - Primary | + + | Multiple skin tears Open wound(s) (multiple) of unspecified site(s), without mention | | of complication | + + | Closed head injury, initial encounter | + + documented in this encounter"
--- OUTSIDE RECORDS SUMMARY | ~2019-12-31 | XMS | Encounter Summary ---
Demographics + + + | Address | [address] | | | [place] [address] | + + + | Home Phone | | + + + | Preferred Language | Unknown | + + + | Marital Status | | + + + | Mandaeism Affiliation | Unknown | + + + | Race | Unknown | + + + | Ethnic Group | Unknown | + + + Author + + + | Author | [facility] | | | and [place] | + + + | Organization | [facility] | | | and [place] | + + + | Address | Unknown | + + + | Phone | Unavailable | + + + Support + + + + + | Name | Relationship | Address | Phone | + + + + + | Enma Blum | ECON | [address] | | | | | [place] | | | | | [address] | | + + + + + Care Team Providers + +------+ + | [facility] Name | Role | Phone | + +------+ + | Yasmani Phelan PCP | | + +------+ + Encounter Details +--------+ + + + + | Date | Type | Department | Care Team | Description | +--------+ + + + + | 11/14/ | Orders Only | [facility] [place] | [place], | Chronic kidney | | 2020 | | NEPHROLOGY [address] | disease, stage IV | | | | [address] [place] [address] | [address], [place] | (severe) (HCC) | | | | [place], [place] | [address] [place], [place] | (Primary Dx) | | | | [phone] | [address] | | | | | [phone] | | | +--------+ + + + [...] + + documented as of this encounter Progress Notes Yolanda Aviles RN - 11/15/2019 3:41 PM PDTLabs for nephrology appt on [facility]. Renal Ultrasound scheduled at [facility] on 12/10/19 at 11 AM. documented in this en counter Plan of Treatment +--------+---------+ + + + | Date | Type | Specialty | Care Team | Description | +--------+---------+ + + + | 01/26/ | Office | Nephrology | [place], | | | 2019 | Visit | | [address] | | | | | | [address], [place] | | | | | | [address], [place] | | | | | | [address] | | | | | | | | +--------+---------+ + + + | 02/23/ | Office | Cardiology | Rasheed Dooley, | | | 2019 | Visit | | [address] | | | | | | [place], | | | | | | [place] [address] | | | | | | [phone] | | | | | | | | +--------+---------+ + + + + +---------+--------+ + + | Name | Type | Priori | Associated Diagnoses | Order Schedule | | | | ty | | | + +---------+--------+ + + | CBC with | Lab | Routin | Chronic kidney | Expected: 01/20/2020 | | Differential | | e | disease, stage IV | (Approximate), | | | | | (severe) (HCC) | Expires: 11/15/2020 | + +---------+--------+ + + | Renal Function Panel | Lab | Routin | Chronic kidney | Expected: 01/20/2020 | | | | e | disease, stage IV | (Approximate), | | | | | (severe) ([facility]) | Expires: 11/15/2020 | + +---------+--------+ + + | Vitamin D, | Lab | Routin | Chronic kidney | Expected: 01/20/2020 | | Deficiency Screen | | e | disease, stage IV | (Approximate), | | (25-Hydroxy) | | | (severe) ([facility]) | Expires: 11/15/2020 | + +---------+--------+ + + | Parathyroid Hormone, | Lab | Routin | Chronic kidney | Expected: 01/20/2020 | | Intact | | e | disease, stage IV | (Approximate), | | | | | (severe) (HCC) | Expires: 11/15/2020 | + +---------+--------+ + + | Urinalysis With | Lab | Routin | Chronic kidney | Expected: | | Microscopic | | e | disease, stage IV | 01/20/2020, Expires: | | | | | (severe) (HCC) | 11/14/2020 | + +---------+--------+ + + | Protein/Creatinine | Lab | Routin | Chronic kidney | Expected: 01/20/2020 | | Ratio, Urine | | e | disease, stage IV | (Approximate), | | | | | (severe) (HCC) | Expires: 11/15/2020 | + +---------+--------+ + + | US Renal Complete | Imaging | Routin | Chronic kidney | Expected: | | | | e | disease, stage IV | 11/15/2019, Expires: | | | | | (severe) (HCC) | 11/14/2020 | + +---------+--------+ + + documented as of this encounter Visit Diagnoses + + | Diagnosis | + + | Chronic kidney disease, stage IV (severe) (HCC) - Primary Chronic kidney disease, | | Stage IV (severe) | + + documented in this encounter"
--- OUTSIDE RECORDS SUMMARY | ~2019-12-31 | XMS | Encounter Summary ---
Demographics + + + | Address | [address] | | | [place] [address] | + + + | Home Phone | | + + + | Preferred Language | Unknown | + + + | Marital Status | | + + + | Yazidism Affiliation | Unknown | + + + | Race | Unknown | + + + | Ethnic Group | Unknown | + + + Author + + + | Author | [facility] | | | and [place] | + + + | Organization | [facility] | | | and [place] | + + + | Address | Unknown | + + + | Phone | Unavailable | + + + Support + + + + + | Name | Relationship | Address | Phone | + + + + + | Enma Blum | ECON | [address] | | | | | #[place] | | | | | [address] | | + + + + + Care Team Providers + +------+ + | Care Turning Lathe Tender Name | Role | Phone | + +------+ + | Yasmani Phealn PCP | | + +------+ + Encounter Details +--------+ + + + + | Date | Type | Department | Care Team | Description | +--------+ + + + + | 10/19/ | Abstract | [facility] | Trisha Hunterfer W, | | | 2019 | | NEPHROLOGY [address] | MD [address] | | | | | [address] | [address] [place] | | | | | [place], [place] | [place] [address] | | | | | [address] | [phone] | | | | | [phone] | | | +--------+ + + + [...] | Nephrology | Odalis, | | | 2019 | Visit | | MAINOR [address] | | | | | | [address], [facility] | | | | | | [address] [place] | | | | | | [address] | | | | | | | | +--------+---------+ + + + | 02/23/ | Office | Cardiology | Rasheed Dooley, | | | 2019 | Visit | | MD [address] | | | | | | [place], | | | | | | [place] [address] | | | | | | [phone] | | | | | | | | +--------+---------+ + + + documented as of this encounter Procedures + +--------+ + + + | Procedure Name | Priori | Date/Time | Associated Diagnosis | Comments | | | ty | | | | + +--------+ + + + | EXTERNAL LAB: JESUS | Routin | 10/07/2019 | | Results for this | | | e | | | procedure are in the | | | | | | results section. | + +--------+ + + + | EXTERNAL LAB: | Routin | 10/07/2019 | | Results for this | | GLUCOSE | e | | | procedure are in the | | | | | | results section. | + +--------+ + + + | EXTERNAL LAB: | Routin | 10/07/2019 | | Results for this | | MAGNESIUM | e | | | procedure are in the | | | | | | results section. | + +--------+ + + + | EXTERNAL LAB: | Routin | 10/07/2019 | | Results for this | | CALCIUM | e | | | procedure are in the | | | | | | results section. | + +--------+ + + + | EXTERNAL LAB: CARBON | Routin | 10/07/2019 | | Results for this | | DIOXIDE | e | | | procedure are in the | | | | | | results section. | + +--------+ + + + | EXTERNAL LAB: | Routin | 10/07/2019 | | Results for this | | CHLORIDE | e | | | procedure are in the | | | | | | results section. | + +--------+ + + + | EXTERNAL LAB: | Routin | 10/07/2019 | | Results for this | | POTASSIUM | e | | | procedure are in the | | | | | | results section. | + +--------+ + + + | EXTERNAL LAB: SODIUM | Routin | 10/07/2019 | | Results for this | | | e | | | procedure are in the | | | | | | results section. | + +--------+ + + + | EXTERNAL LAB: CBC | Routin | 10/07/2019 | | Results for this | | | e | | | procedure are in the | | | | | | results section. | + +--------+ + + + | EXTERNAL LAB: EGFR | Routin | 10/07/2019 | | Results for this | | | e | | | procedure are in the | | | | | | results section. | + +--------+ + + + | EXTERNAL LAB: | Routin | 10/07/2019 | | Results for this | | CREATININE | e | | | procedure are in the | | | | | | results section. | + +--------+ + + + documented in this encounter Results External Lab: BUN (10/07/2019) + +-------+ + + + | Component | Value | Ref Range | Performed | Pathologist | | | | | At | Signature | + +-------+ + + + | BUN, | 51 | | | | | External | | | | | + +-------+ + + + External Lab: Glucose (10/07/2019) + +-------+ + + + | Component | Value | Ref Range | Performed | Pathologist | | | | | At | Signature | + +-------+ + + + | Glucose, | 122 | | | | | External | | | | | + +-------+ + + + External Lab: Magnesium (10/07/2019) + +-------+ + + + | Component | Value | Ref Range | Performed | Pathologist | | | | | At | Signature | + +-------+ + + + | Magnesium, | 1.6 | | | | | External | | | | | + +-------+ + + + External Lab: Calcium (10/07/2019) + +-------+ + + + | Component | Value | Ref Range | Performed | Pathologist | | | | | At | Signature | + +-------+ + + + | Calcium, | 8.8 | | | | | External | | | | | + +-------+ + + + External Lab: Carbon Dioxide (10/07/2019) + +-------+ + + + | Component | Value | Ref Range | Performed | Pathologist | | | | | At | Signature | + +-------+ + + + | Carbon | 21 | | | | | Dioxide, | | | | | | External | | | | | + +-------+ + + + External Lab: Chloride (10/07/2019) + +-------+ + + + | Component | Value | Ref Range | Performed | Pathologist | | | | | At | Signature | + +-------+ + + + | Chloride, | 108 | | | | | External | | | | | + +-------+ + + + External Lab: Potassium (10/07/2019) + +-------+ + + + | Component | Value | Ref Range | Performed | Pathologist | | | | | At | Signature | + +-------+ + + + | Potassium, | 4.1 | | | | | External | | | | | + +-------+ + + + External Lab: Sodium (10/07/2019) + +-------+ + + + | Component | Value | Ref Range | Performed | Pathologist | | | | | At | Signature | + +-------+ + + + | Sodium, | 139 | | | | | External | | | | | + +-------+ + + + External Lab: CBC (10/07/2019) + +-------+ + + + | Component | Value | Ref Range | Performed | Pathologist | | | | | At | Signature | + +-------+ + + + | WBC, | 10.2 | | | | | External | | | | | + +-------+ + + + | HGB, | 9.9 | | | | | External | | | | | + +-------+ + + + | HCT, | 29.6 | | | | | External | | | | | + +-------+ + + + | PLT, | 142 | | | | | External | | | | | + +-------+ + + + | RBC, | 3.21 | | | | | External | | | | | + +-------+ + + + | MCV, | 92 | | | | | External | | | | | + +-------+ + + + | RDW, | 17.3 | | | | | External | | | | | + +-------+ + + + External Lab: eGFR (10/07/2019) + +-------+ + + + | Component [...] Blood | + + External Lab: Creatinine (10/07/2019) + +-------+ + + + | Component [...]
--- OUTSIDE RECORDS SUMMARY | ~2019-12-31 | XMS | Encounter Summary ---
Demographics + + + | Address | [address] | | | [place] [address] | + + + | Home Phone | | + + + | Preferred Language | Unknown | + + + | Marital Status | | + + + | Samaritan Affiliation | Unknown | + + + | Race | Unknown | + + + | Ethnic Group | Unknown | + + + Author + + + | Author | [facility] | | | and [place] | + + + | Organization | [facility] | | | and [place] | + + + | Address | Unknown | + + + | Phone | Unavailable | + + + Support + + + + + | Name | Relationship | Address | Phone | + + + + + | Enma Blum | ECON | [address] | | | | | #[place] | | | | | [address] | | + + + + + Care Team Providers + +------+ + | Care Block Making Machine Operator Name | Role | Phone | + +------+ + | Yasmani Phelan PCP | | + +------+ + Encounter Details +--------+ + + + + | Date | Type | Department | Care Team | Description | +--------+ + + + + | 11/10/ | Abstract | [facility] | Provider, | | | 2020 | | NEPHROLOGY [address] | MD [address] | | | | | [address] | [address] | | | | | [place] | [place] [address] | | | | | [address] | | | | | | [phone] | | | +--------+ + + + [...] | | | | | | [address] | | | | | | [address] [place] | | | | | | [address] | | | | | | | | +--------+---------+ + + + | 02/23/ | Office | Cardiology | Rasheed Dooley, | | | 2019 | Visit | | MD [address] | | | | | | [place], | | | | | | [place] [address] | | | | | | [phone] | | | | | | | | +--------+---------+ + + + documented as of this encounter Visit Diagnoses Not on filedocumented in this encounter"
--- OUTSIDE RECORDS SUMMARY | ~2019-12-31 | XMS | Encounter Summary ---
Demographics + + + | Address | [address] | | | [place] [address] | + + + | Home Phone | | + + + | Preferred Language | Unknown | + + + | Marital Status | | + + + | Anabaptist Affiliation | Unknown | + + + | Race | Unknown | + + + | Ethnic Group | Unknown | + + + Author + + + | Author | [facility] | | | and [place] | + + + | Organization | [facility] | | | and [place] | + + + | Address | Unknown | + + + | Phone | Unavailable | + + + Support + + + + + | Name | Relationship | Address | Phone | + + + + + | Enma Blum | ECON | [address] | | | | | #[address] | | | | | [address] | | + + + + + Care Team Providers + +------+ + | Care Environmental Solutions Engineer Name | Role | Phone | + [...] | NEPHROLOGY [address] | Shannan R, CHEMICAL TANK WORKER [address] | | | | | [address] | [address], [address] | | | | | [place], [place] | [address] [place], [place] | | | | | [address] | [address] | | | | | [phone] | | | +--------+ + + + [...] [place] | | | | | | [address] | | | | | | | | +--------+---------+ + + + | 02/23/ | Office | Cardiology | Rasheed Dooley, | | | 2019 | Visit | | MD [address] | | | | | | [place], | | | | | | [place] [address] | | | | | | [phone] | | | | | | | [...]
--- OUTSIDE RECORDS SUMMARY | ~2019-12-31 | XMS | Encounter Summary ---
Demographics + + + | Address | [address] | | | [place] [address] | + + + | Home Phone | | + + + | Preferred Language | Unknown | + + + | Marital Status | | + + + | Synagogue Affiliation | Unknown | + + + | Race | Unknown | + + + | Ethnic Group | Unknown | + + + Author + + + | Author | [facility] | | | and [place] | + + + | Organization | [facility] | | | and [place] | + + + | Address | Unknown | + + + | Phone | Unavailable | + + + Support + + + + + | Name | Relationship | Address | Phone | + + + + + | Enma Blum | ECON | [address] | | | | | #[place] | | | | | [address] | | + + + + + Care Team Providers + +------+ + | Care Vp Director Of Creative Strategy Name | Role | Phone | + +------+ + | Yasmani Phelan PCP | | + +------+ + Encounter Details +--------+ + + + + | Date | Type | Department | Care Team | Description | +--------+ + + + + | 10/19/ | Abstract | [facility] | Trisha Hunterfer W, | | | 2019 | | NEPHROLOGY [address] | MD [address] | | | | | [address] | [address] [place] | | | | | [place], [place] | [place] [address] | | | | | [address] | [phone] | | | | | [phone] | | | +--------+ + + + [...] | | | | [address], [facility] | | | | | | [address] [place] | | | | | | [address] | | | | | | | | +--------+---------+ + + + | 02/23/ | Office | Cardiology | Rasheed Dooley, | | | 2019 | Visit | | MD [address] | | | | | | [place], | | | | | | [place] [address] | | | | | | [phone] | | | | | | | [...]
--- OUTSIDE RECORDS SUMMARY | ~2019-12-31 | XMS | Clinical Summary ---
Demographics + + + | Address | [address] | | | [place] [address] | + + + | Home Phone | | + + + | Preferred Language | Unknown | + + + | Marital Status | | + + + | Anabaptism Affiliation | Unknown | + + + | Race | Unknown | + + + | Ethnic Group | Unknown | + + + Author + + + | Author | [facility] | | | and [place] | + + + | Organization | [facility] | | | and [place] | + + + | Address | Unknown | + + + | Phone | Unavailable | + + + Support + + + + + | Name | Relationship | Address | Phone | + + + + + | Enma Blum | ECON | [address] | | | | | #[place] | | | | | [address] | | + + + + + Care Team Providers + +------+ + | Care Lead Mechanic Name | Role | Phone | + +------+ + | Yasmani Phelan | PCP | | + +------+ + Allergies No Known Allergies Medications + + + +---------+------+------+-------+ | Medication | Sig | Dispensed | Refills | Star | End | Statu | | | | | | t | Date | s | | | | | | Date | | | + + + +---------+------+------+-------+ | omeprazole | Take 20 mg by mouth | | 0 | | | Activ | | (PRILOSEC) 20 mg | every morning | | | | | e | | capsule | (before breakfast). | | | | | | + + + +---------+------+------+-------+ | sertraline | Take 50 mg by mouth | | 0 | | | Activ | | (ZOLOFT) 50 mg | Daily. | | | | | e | | tablet | | | | | | | + + + +---------+------+------+-------+ | carbamide peroxide | 5 drops 2 times | | 0 | | | Activ | | (DEBROX) 6.5% otic | daily. | | | | | e | | solution | | | | | | | + + + +---------+------+------+-------+ | amiodarone | Take 200 mg by mouth | | 0 | | | Activ | | (PACERONE) 200 mg | Daily. | | | | | e | | tablet | | | | | | | + + + +---------+------+------+-------+ | amLODIPine | Take 2.5 mg by mouth | | 0 | | | Activ | | (NORVASC) 2.5 mg | Daily. | | | | | e | | tablet | | | | | | | + + + +---------+------+------+-------+ | atorvaSTATin | Take 10 mg by mouth | | 0 | | | Activ | | (LIPITOR) 10 mg | nightly. | | | | | e | | tablet | | | | | | | + + + +---------+------+------+-------+ | cholecalciferol | Take 1,000 Units by | | 0 | | | Activ | | (VITAMIN D-3) 1000 | mouth Daily. | | | | | e | | units TABS | | | | | | | + + + +---------+------+------+-------+ | apixaban (ELIQUIS) | Take 2.5 mg by mouth | | 0 | | | Activ | | 2.5 mg tablet | 2 times daily. | | | | | e | + + + +---------+------+------+-------+ | metoprolol | Take 25 mg by mouth | | 0 | | | Activ | | succinate | Daily. 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, stage IV | | | | | | (severe) (HCC) | | | | | | (Primary Dx) | +--------+ + + + + | 11/10/ | Abstract | Nephrology | Odalis, | | | 2019 | | | MAINOR Tesfaye | | +--------+ + + + + | 11/10/ | Abstract | Nephrology | Nancy, | | 2019 | | | [address] | | +--------+ + + + + | 10/19/ | Abstract | Nephrology | Leticia Hunter, | | | 2019 | | | | | +--------+ + + + + from Last 3 Months Family History + + +------+ + | Medical History | Relation | Name | Comments | + + +------+ + | Heart disease | Mother | | | + + +------+ + | Hypertension | Mother | | | + + +------+ + | Stroke | Mother | | | + + +------+ + + +------+--------+ + | Relation | Name | Status | Comments | + +------+--------+ + | Mother | | | | + +------+--------+ + Social History + + + +--------+ [...] recent travel history available. | + + Last Filed Vital Signs + + + [...] + + + + | Weight | 96 kg (211 lb 10.3 | 05/03/2019 1:52 PM | | | | oz) | PDT | | + + + + + | Height | 188 cm (6' 2") | 05/03/2019 1:52 PM | | | | | PDT | | + + + + + | Body Mass Index | 27.17 | 05/03/2019 1:52 PM | | | | | PDT | | + + + + + Plan of Treatment +--------+---------+ + + + [...] [place] | | | | | | [address] | | | | | | | | +--------+---------+ + + + | 02/23/ | Office | Cardiology | Rasheed Dooley, | | | 2019 | Visit | | MD [address] | | | | | | [place], | | | | | | [place] [address] | | | | | | [phone] | | | | | | | | +--------+---------+ + + + + + + + + | Health Maintenance | Due Date | Last Done | Comments | + + + + + | Vaccine: | | | | | Dtap/Tdap/Td (1 - | 8 | | | | Tdap) | | | | + + + + + | Vaccine: Zoster (1 | | | | | of 2) | 7 | | | + + + + + | Vaccine: | | | | | Pneumococcal 65+ (1 | 2 | | | | of 2 - PCV13) | | | | + + + + + | Adult Annual | | | | | Wellness Visit | 9 | | | + + + + + | Vaccine: Influenza | | | | | (Season Ended) | 0 | | | + + + + + Procedures + +--------+ + + + | Procedure Name | Priori | Date/Time | Associated Diagnosis | Comments | | | ty | | | | + +--------+ + + + | IMAGING REPORT - | | 12/21/2019 | | Results for this | | EXTERNAL SCAN | | 12:00 AM | | procedure are in the | | | | PDT | | results section. | + +--------+ + + + | EXTERNAL LAB: BUN | Routin | 10/20/2019 | | Results [...] | EXTERNAL LAB: JESUS | Routin | 10/08/2019 | | Results [...] | EXTERNAL LAB: BUN | Routin | 10/07/2019 | | Results [...] | + +--------+ + + + | LABS - EXTERNAL SCAN | | 10/05/2019 | | Results for this | | | | 12:00 AM | | procedure are in the | [...] | EXTERNAL LAB: EGFR | Routin | 10/05/2019 | | Results [...] section. | + +--------+ + + + from Last 3 Months Results IMAGING REPORT - EXTERNAL SCAN (12/21/2019 12:00 AM PDT) + + + | Narrative | Performed At | + + + | Ordered by an | | | unspecified provider. | | + + + External Lab: BUN (10/20/2019)Only the most recent of 4 results within the time period is i ncluded. + +-------+ + + + | Component | Value | Ref Range | Performed | Pathologist | | | | | At | Signature | + +-------+ + + + | BUN, | 32 | | | | | External | | | | | + +-------+ + + + External Lab: Glucose (10/20/2019)Only the most recent of 4 results within the time period is included. + +-------+ + + + | Component | Value | Ref Range | Performed | Pathologist | | | | | At | Signature | + +-------+ + + + | Glucose, | 143 | | | | | External | | | | | + +-------+ + + + External Lab: ALT (10/20/2019)Only the most recent of 2 results within the time period is i ncluded. + +-------+ + + + | Component | Value | Ref Range | Performed | Pathologist | | | | | At | Signature | + +-------+ + + + | ALT, | 33 | | | | | External | | | | | + +-------+ + + + External Lab: AST (10/20/2019)Only the most recent of 2 results within the time period is i ncluded. + +-------+ + + + | Component | Value | Ref Range | Performed | Pathologist | | | | | At | Signature | + +-------+ + + + | AST, | 28 | | | | | External | | | | | + +-------+ + + + External Lab: Alkaline Phosphatase (10/20/2019)Only the most recent of 2 results within the time period is included. + +-------+ + + + | Component | Value | Ref Range | Performed | Pathologist | | | | | At | Signature | + +-------+ + + + | ALP, | 66 | | | | | External | | | | | + +-------+ + + + External Lab: Bilirubin, Total (10/20/2019)Only the most recent of 2 results within the angélica e period is included. + +-------+ + + + | Component | Value | Ref Range | Performed | Pathologist | | | | | At | Signature | + +-------+ + + + | Bilirubin, | 0.4 | | | | | Total, | | | | | | External | | | | | + +-------+ + + + External Lab: Albumin (10/20/2019)Only the most recent of 2 results within the time period is included. + +-------+ + + + | Component | Value | Ref Range | Performed | Pathologist | | | | | At | Signature | + +-------+ + + + | Albumin, | 3.2 | | | | | External | | | | | + +-------+ + + + External Lab: Protein, Total (10/20/2019)Only the most recent of 2 results within the time period is included. + +-------+ + + + | Component | Value | Ref Range | Performed | Pathologist | | | | | At | Signature | + +-------+ + + + | Protein, | 5.9 | | | | | Total, | | | | | | External | | | | | + +-------+ + + + External Lab: Calcium (10/20/2019)Only the most recent of 4 results within the time period is included. + +-------+ + + + | Component | Value | Ref Range | Performed | Pathologist | | | | | At | Signature | + +-------+ + + + | Calcium, | 8.4 | | | | | External | | | | | + +-------+ + + + External Lab: Carbon Dioxide (10/20/2019)Only the most recent of 4 results within the time period is included. + +-------+ + + + | Component | Value | Ref Range | Performed | Pathologist | | | | | At | Signature | + +-------+ + + + | Carbon | 26 | | | | | Dioxide, | | | | | | External | | | | | + +-------+ + + + External Lab: Chloride (10/20/2019)Only the most recent of 4 results within the time period is included. + +-------+ + + + | Component | Value | Ref Range | Performed | Pathologist | | | | | At | Signature | + +-------+ + + + | Chloride, | 104 | | | | | External | | | | | + +-------+ + + + External Lab: Potassium (10/20/2019)Only the most recent of 4 results within the time perio d is included. + +-------+ + + + | Component | Value | Ref Range | Performed | Pathologist | | | | | At | Signature | + +-------+ + + + | Potassium, | 4.3 | | | | | External | | | | | + +-------+ + + + External Lab: Sodium (10/20/2019)Only the most recent of 4 results within the time period i s included. + +-------+ + + + | Component | Value | Ref Range | Performed | Pathologist | | | | | At | Signature | + +-------+ + + + | Sodium, | 138 | | | | | External | | | | | + +-------+ + + + External Lab: CBC (10/20/2019)Only the most recent of 3 results within the time period is i ncluded. + +-------+ + + + | Component [...] +-------+ + + + External Lab: eGFR (10/20/2019)Only the most recent of 4 results within the time period is included. + +-------+ + + + | Component [...] Blood | + + External Lab: Creatinine (10/20/2019)Only the most recent of 4 results within the time nichol od is included. + +-------+ + + + | Component [...] | Blood | + + External Lab: Magnesium (10/07/2019) + +-------+ + + + | Component | Value | Ref Range | Performed | Pathologist | | | | | At | Signature | + +-------+ + + + | Magnesium, | 1.6 | | | | | External | | | | | + +-------+ + + + LABS - EXTERNAL SCAN (10/05/2019 12:00 AM PDT) + + + | Narrative | Performed At | + + + | Ordered by an | | | unspecified provider. | | + + + from Last 3 Months Insurance + +--------+ +--------+ +---------+--------+ | Payer | Benefi | Subscriber | Effect | Phone | Address | Type | | | t Plan | ID | panda | | | | | | / | | Dates | | | | | | Group | | | | | | + +--------+ +--------+ +---------+--------+ | MEDICARE | MEDICA | [id number] | | [phone] | | Medica | | | RE | | 997-Pr | 5 | | re | | | PART A | | esent | | | | + +--------+ +--------+ +---------+--------+ | BCBS | BCBS | [id number] | | | | PPO | | | [place] | | 017-Pr | | | | | | L FEP | | esent | | | | + +--------+ +--------+ +---------+--------+ | MEDICARE | MEDICA | [id number] | | [phone] | | Medica | | | RE | | 997-Pr | 5 | | re | | | PART A | | esent | | | | + +--------+ +--------+ +---------+--------+ | BCBS | BCBS | [id number] | | | | PPO | | | [place] | | 017-Pr | | | | | | L FEP | | esent | | | | + +--------+ +--------+ +---------+--------+ + +--------+ +--------+ + + | Guarantor Name | Accoun | Relation to | Date | Phone | Billing Address | | | t Type | Patient | of | | | | | | | | | | + +--------+ +--------+ + + | Greg Blum | Person | Self [birth year] | [address] | | | al/Fam | | 1935 | [phone] | [address] [place], | | | [place] | | | [address] (Home) | [place] [address] | + +--------+ +--------+ + + | Greg Blum | Person | Self | [birth year] | [address] | | | al/Fam | | 1935 | [phone] | [address], | | | [place] | | | [address] (Home) | [place] [address] | + +--------+ +--------+ + + Advance Directives + + + + + | Type | Date Recorded | Patient | Explanation | | | | Gathering Machine Setter | | + + + + + | Power of | | | | | Lyft Driver | | | | + + + + + | Advance | | | | | Directive | | | | + + + + +
--- OUTSIDE RECORDS SUMMARY | ~2019-12-31 | XMS | Encounter Summary ---
Demographics + + + | Address | [address] | | | [place] [address] | + + + | Home Phone | | + + + | Preferred Language | Unknown | + + + | Marital Status | | + + + | Sabianist Affiliation | Unknown | + + + | Race | Unknown | + + + | Ethnic Group | Unknown | + + + Author + + + | Author | [facility] | | | and [place] | + + + | Organization | [facility] | | | and [place] | + + + | Address | Unknown | + + + | Phone | Unavailable | + + + Support + + + + + | Name | Relationship | Address | Phone | + + + + + | Enma Blum | ECON | [address] | | | | | #[place] | | | | | [address] | | + + + + + Care Team Providers + +------+ + | Care Aix Architect Name | Role | Phone | + [...] | | | | | Rosmery Botello [place] | [place] [address] | | | | | [address] | | | | | | [phone] | | | +--------+ + + + [...] [place] | | | | | | [address] | | | | | | | | +--------+---------+ + + + | 02/23/ | Office | Cardiology | Rasheed Dooley, | | | 2019 | Visit | | MD [address] | | | | | | [place], | | | | | | [place] [address] | | | | | | [phone] | | | | | | | | +--------+---------+ + + + documented as of this encounter Visit Diagnoses Not on filedocumented in this encounter"
--- OUTSIDE RECORDS SUMMARY | ~2019-12-31 | XMS | Encounter Summary ---
Demographics + + + | Address | [address] | | | [place] [address] | + + + | Home Phone | | + + + | Preferred Language | Unknown | + + + | Marital Status | | + + + | Hinduism Affiliation | Unknown | + + + | Race | Unknown | + + + | Ethnic Group | Unknown | + + + Author + + + | Author | [facility] | | | and [place] | + + + | Organization | [facility] | | | [...] #[place] | | | | | [address] | | + + + + + Care Team Providers + +------+ + | Care First Beater Name | Role | Phone | + +------+ + PCP | Unavailable | + +------+ + Reason for Visit +--------+ + | Reason | Comments | +--------+ + | Fall | fell yesterday and has several lacerations on right hand and left | | | elbow, possibly has hit the head during the fall, RM 7 | +--------+ + Encounter Details +--------+---------+ + + + | Date | Type | Department | Care Team | Description | +--------+---------+ + + + | 05/03/ | Office | [facility] | Mervin Conrad, | Patient left after | | 2019 | Visit | CARE [address] | [address] | triage (Primary Dx) | | | | [place] | [place] | | | | | [address] | [address] | | | | | [phone] | | | +--------+---------+ + + + Social History + + [...] + + + | Blood Pressure | 160/67 | 05/03/2019 1:52 PM | | | | | PDT | | + + + + + | Pulse | 54 | 05/03/2019 1:52 PM | | | | | PDT | | + + + + + | Temperature | 37.1 C (98.8 F) | 05/03/2019 1:52 PM | | | | | PDT | | + + + + + | Respiratory Rate | 12 | 05/03/2019 1:52 PM | | | | | PDT | | + + + + + | Oxygen Saturation | 97% | 05/03/2019 1:52 PM | | | [...] + + + documented in this encounter Progress Notes Kirsten Hu RN - 05/03/2019 1:45 PM PDT This is a Rapid Triage & this patient was not seen by a physician during this triage: Chief Complaint Patient presents with Fall fell yesterday and has several lacerations on right hand and left elbow, possibly has hit the head during the fall, RM 7 BP 160/67 | Pulse 54 | Temp 37.1 C (98.8 F) (Temporal) | Resp 12 | Ht 1.88 m (6' 2" ) | Wt 96 kg (211 lb 10.3 oz) | SpO2 97% | BMI 27.17 kg/m Relevant History related to today's visit: No past medical history on file. MD Consulted: Dr. Conrad Emergency Room has been recommended for this patient. The patient has [facility] [] Other: Reason for triage recommendation: Out of Scope of Practice or Complex Medical Needs Suspected Cardiac: [] Seizures: [] Advanced Respiratory Condition: [] Head Injury with LOC: [] Pre- Problems: [] Victim of Crime: [] Child/Elder Abuse: [] Severe Abdominal Pain: [] "Worst pain in life": [] Need for IV Medication: [] After-hours Radiology Reading needs by [facility]: [] Patient with complex workup needs to close to closing time: [] Patient in need of hospital admission: [] Patient at risk if to remain in Urgent Care: [x] Patient refused assessment during triage: [] The recommended mode of transportation is: Patient/Family Transport--X Staff Transport-- EMS-- Other: Patient has Accepted or Declined these recommendations: [x] Accept [] Decline Patient/guardian signature will be scanned in to EMR *Patient has been advised to the reasons that he/she is being triaged to the ED* [x] *Report has been called to the ED charge nurse regarding triage findings* [x] Nurse's name who took report: BERNABE Velasquez *The patient has been informed that the ED staff will be aware of his/her arrival, although patient may not be roomed immediately, they will be seen as soon as possible.* [x] documented in thi s encounter Plan of Treatment +--------+---------+ + + [...] [place] | | | | | | [id number] | | | | | | | | +--------+---------+ + + + | 02/23/ | Office | Cardiology | Rasheed Dooley, | | 2019 | Visit | | MD [address] | | | | | | [place], | | | | | | [place] [address] | | | | | | [phone] | | | | | | | | +--------+---------+ + + + documented as of this encounter Visit Diagnoses + + | Diagnosis | + + | Patient left after triage - Primary | + + documented in this encounter
--- OUTSIDE RECORDS SUMMARY | ~2019-12-31 | XMS | Encounter Summary ---
Demographics + + + | Address | [address] | | | [place] [address] | + + + | Home Phone | | + + + | Preferred Language | Unknown | + + + | Marital Status | | + + + | Jain Affiliation | Unknown | + + + | Race | Unknown | + + + | Ethnic Group | Unknown | + + + Author + + + | Author | [facility] | | | and [place] | + + + | Organization | [facility] | | | and [...] [place] | | | | | [address] | | + + + + + Care Team Providers + +------+ + | Care Surfboard Designer Name | Role | Phone | + [...] | [address] [place] [address] | [address], [place] | (severe) (HCC) | | | | [place], [place] | [address] [place], [place] | (Primary Dx) | | | | [address] | [address] | | | | | [phone] | | | +--------+ + + + [...] for nephrology appt on 01/27/20 [facility]. Renal Ultrasound scheduled at [facility] on 12/10/19 at 11 AM. documented in this en counter Plan of Treatment +--------+---------+ + + + | Date | Type | Specialty | Care Team | Description | +--------+---------+ + + + | 01/26/ | Office | Nephrology | Odalis, | | | 2019 | Visit | | [address] | | | | | | [address], [place] | | | | | | [address] [place], [place] | | | | | | [address] | | | | | | | | +--------+---------+ + + + | 02/23/ | Office | Cardiology | Rasheed Dooley, | | | 2019 | Visit | | [address] | | | | | | [place], | | | | | | [place] [address] | | | | | | [phone] | | | | | | | [...] (Approximate), | | | | | (severe) ([facility]) | Expires: 11/15/2020 | + +---------+--------+ + + | Vitamin D, | Lab | Routin | Chronic kidney | Expected: 01/20/2020 | | Deficiency Screen | | e | disease, stage IV | (Approximate), | | (25-Hydroxy) | | | (severe) ([facility]) | Expires: 11/15/2020 | + +---------+--------+ + [...]
--- OUTSIDE RECORDS SUMMARY | ~2019-12-31 | XMS | Encounter Summary ---
Demographics + + + | Address | [address] | | | [place] [address] | + + + | Home Phone | | + + + | Preferred Language | Unknown | + + + | Marital Status | | + + + | Presybeterian Affiliation | Unknown | + + + | Race | Unknown | + + + | Ethnic Group | Unknown | + + + Author + + + | Author | [facility] | | | and [place] | + + + | Organization | [facility] | | | and [place] | + + + | Address | Unknown | + + + | Phone | Unavailable | + + + Support + + + + + | Name | Relationship | Address | Phone | + + + + + | Enma Blum | ECON | [address] | | | | | [place] | | | | | [address] | | + + + + + Care Team Providers + +------+ + | Care Assistant Head Cashier Name | Role | Phone | + [...] | | | | CENTER [address] | [address] [place] | Dx); Multiple skin | | | | [place], [place] | [place] [address] | tears; Closed head | | | | [address] | [phone] | injury, initial | | | | [phone] | | encounter | +--------+ + + [...] ng, Are You At Risk of Falling? (Palauan)Head Injury (Adult) (Palauan)Skin Avulsion (Palauan )documented in this encounter Medications at Time [...] [place] | | | | | | [address] | | | | | | | | +--------+---------+ + + + | 02/23/ | Office | Cardiology | Rasheed Dooley, | | | 2019 | Visit | | [address] | | | | | | [place], | | | | | | [place] [address] | | | | | | [phone] | | | | | | | [...] | | | | VINNY PATEL MD ([id number]) | | | | | | on [...]
--- OUTSIDE RECORDS SUMMARY | ~2019-12-31 | XMS | Encounter Summary ---
Demographics + + + | Address | [address] | | | [place] [address] | + + + | Home Phone | | + + + | Preferred Language | Unknown | + + + | Marital Status | | + + + | Mandaeism Affiliation | Unknown | + + + | Race | Unknown | + + + | Ethnic Group | Unknown | + + + Author + + + | Author | [facility] | | | and [place] | + + + | Organization | [facility] | | | [...] #[place] | | | | | [address] | | + + + + + Care Team Providers + +------+ + | Care Dispatch Machine Runner Name | Role | Phone | + [...] + + | 05/03/ | Office | [facility] | Mervin Conrad, | Patient left after | | 2019 | Visit | CARE [address] | [address] | triage (Primary Dx) | | | | [place] | [place] | | | | | [address] | [address] | | | | | [phone] | | | +--------+---------+ + + + [...] for this patient. The patient has chosen: [facility] [] Other: Reason for triage recommendation: Out of Scope of Practice or Complex Medical Needs Suspected Cardiac: [] Seizures: [] Advanced Respiratory Condition: [] Head Injury with LOC: [] Pre- Problems: [] Victim of Crime: [] Child/Elder Abuse: [] Severe Abdominal Pain: [] "Worst pain in life": [] Need for IV Medication: [] After-hours Radiology Reading needs by [facility]: [] Patient with complex workup needs [...] [place] | | | | | | [address] | | | | | | | | +--------+---------+ + + + | 02/23/ | Office | Cardiology | Rashede Dooley, | | 2019 | Visit | | MD [address] | | | | | | [place], | | | | | | [place] [address] | | | | | | [phone] | | | | | | | | +--------+---------+ + + + documented as of this encounter Visit Diagnoses + + | Diagnosis | + + | Patient left after triage - Primary | + + documented in this encounter
--- OUTSIDE RECORDS SUMMARY | ~2019-12-31 | XMS | Clinical Summary ---
Demographics + + + | Address | [address] | | | [place] [address] | + + + | Home Phone | | + + + | Preferred Language | Unknown | + + + | Marital Status | | + + + | Moravian Affiliation | Unknown | + + + | Race | Unknown | + + + | Ethnic Group | Unknown | + + + Author + + + | Author | [facility] | | | and [place] | + + + | Organization | [facility] | | [...] | #[id number] | | | | | [address] | | + + + + + Care Team Providers + +------+ + | Care Cafeteria Clerk Name | Role | Phone | + [...] [place] | | | | | | [address] | | | | | | | | +--------+---------+ + + + | 02/23/ | Office | Cardiology | Rasheed Dooley, | | | 2019 | Visit | | MD [address] | | | | | | [place], | | | | | | [place] [address] | | | | | | [phone] | | | | | | | [...] +--------+ +---------+--------+ | MEDICARE | MEDICA | [id number] | | [phone] | | Medica | | | RE | | 997-Pr | 5 | | re | | | PART A | | esent | | | | + +--------+ +--------+ +---------+--------+ | BCBS | BCBS | [id number] | | | | PPO | | | FEDER[place] | | 017-Pr | | | | | | L FEP | | esent | | | | + +--------+ +--------+ +---------+--------+ | MEDICARE | MEDICA | [id number] | | [phone] | | Medica | | | RE | | 997-Pr | 5 | | re | | | PART A | | esent | | | | + +--------+ +--------+ +---------+--------+ | BCBS | BCBS | [id number] | | | | PPO | | [...] | | | 8 (Home) | [place] [address] | + +--------+ +--------+ + + | Greg Blum | Person | Self | [birth year] | [address] | | | al/Fam | | 1935 | [phone] | [address] [place], | | | eladio | | | 8 (Home) | [place] [address] | + +--------+ +--------+ + + Advance Directives + + + + + | Type | Date Recorded | Patient | Explanation | | | | Inner Diameter Grinder Tool | | + + + + + | Power of | | | | | Hvac Field Service Technician | | | | + + + + + | Advance | | | | | Directive | | | | + + + + +
[~2019-12-31 22:33] MED LIST: ALEVE220 MG PO; CEFPODOXIME PR200 MG PO; ELIQUIS2.5 MG PO; LIPITOR10 MG PO; METOPROLOL SUCC25 MG PO; NORVASC10 MG PO; OMEPRAZOLE20 MG PO; PACERONE200 MG PO; SODIUM BICARBO650 MG PO; VITAMIN D350 MC3 PO; ZOLOFT50 MG PO
--- NOTE | 2020-01-01 06:59 | EKG ---
[facility] [address] [place] [address] Signed Sinus bradycardia with 1st degree AV block Nonspecific ST and T wave abnormality Prolonged QT Abnormal ECG When compared with ECG of 05-OCT-2019 20:29, Sinus rhythm has replaced Atrial fibrillation ST elevation now present in Inferior leads ST no longer depressed in Anterior leads Confirmed by DARREL LEONARD MD ([id number]) on 01/01/2020 6:58:46 AM Electronically Signed By: DARREL LEONARD MD 01/01/20 0659 PATIENT NAME: PARIS HILL Electrocardiogram DATE OF : 39 PHYSICIAN: DARREL LEONARD MD REPORT #: [id number] REPORT IS CONFIDENTIAL AND NOT TO BE RELEASED WITHOUT AUTHORIZATION
== END 2020-01-01 04:33 | disposition home or self-care (01) ==
LOC: ED 22:33
DX: R07.9 Chest pain, unspecified (principal); I25.2 Old myocardial infarction; I10 Essential (primary) hypertension; I48.91 Unspecified atrial fibrillation; F32.9 Major depressive disorder, single episode, unspecified; Z79.899 Other long term (current) drug therapy
CPT/HCPCS: 71045; 80053; 83735; 84484; 85025; 93005; 93010; 96374; 96375; 99285-25; J2270; J2405

== ENCOUNTER 2020-08-04 11:02 | Emergency (ER) | payer BC ==
[~2020-08-04] VITALS: Ht 190.5 cm; Wt 99.8 kg
[2020-08-04] MEDS ORDERED: ONDANSETRON ODT4 MG PO (12:28)
[2020-08-04] MEDS ORDERED: ZITHROMAX250 MG PO (15:59)
== END 2020-08-04 16:09 | disposition home or self-care (01) ==
LOC: ED 11:02
DX: J20.9 Acute bronchitis, unspecified (principal); I10 Essential (primary) hypertension; I48.91 Unspecified atrial fibrillation; I25.2 Old myocardial infarction; Z20.822 Contact with and (suspected) exposure to COVID-19; Z79.899 Other long term (current) drug therapy; Z79.01 Long term (current) use of anticoagulants
CPT/HCPCS: 71045; 80053; 83605; 83880; 84484; 85025; 99285-25; C9803; U0003

== ENCOUNTER 2021-11-30 10:39 | Emergency (ER) | payer BC ==
[~2021-11-30] VITALS: Ht 190.5 cm; Wt 99.8 kg
[~2021-11-30 10:39] MED LIST changes: +ONDANSETRON ODT4 MG PO; +ZITHROMAX250 MG PO
== END 2021-11-30 11:16 | disposition home or self-care (01) ==
LOC: ED 10:39
DX: Z48.817 Encounter for surgical aftercare following surgery on the skin and subcutaneous tissue (principal); I10 Essential (primary) hypertension; I48.91 Unspecified atrial fibrillation; I25.2 Old myocardial infarction; Z79.899 Other long term (current) drug therapy; Z79.01 Long term (current) use of anticoagulants
CPT/HCPCS: 99282

== ENCOUNTER 2021-12-28 10:43 | Emergency (ER) | payer BC ==
[~2021-12-28] VITALS: Ht 190.5 cm; Wt 99.8 kg
[2021-12-28] MEDS ORDERED: ZITHROMAX250 MG PO (12:32)
== END 2021-12-28 12:56 | disposition home or self-care (01) ==
LOC: ED 10:43
DX: J20.9 Acute bronchitis, unspecified (principal); I12.9 Hypertensive chronic kidney disease with stage 1 through stage 4 chronic kidney disease, or unspecified chronic kidney disease; N18.9 Chronic kidney disease, unspecified; Z20.822 Contact with and (suspected) exposure to COVID-19; D63.1 Anemia in chronic kidney disease; I48.91 Unspecified atrial fibrillation; Z79.899 Other long term (current) drug therapy; Z85.828 Personal history of other malignant neoplasm of skin
CPT/HCPCS: 36415; 71045; 80053; 83880; 85025; 87502; 99284-25; U0003